=== PATIENT | female | born 1945 | race Caucasian/White ===

== ENCOUNTER 2017-04-13 12:53 | Day surgery (SDC) | payer OTHER ==
[~2017-04-13] VITALS: Ht 167.6 cm; Wt 66.2 kg
[2017-04-13 14:40] VITALS: Ht 167.6 cm; Wt 66.2 kg
[2017-04-13 14:58] VITALS: BP 116/78; PULSE 63; RESP 14
[2017-04-13] MEDS ORDERED: ASPI81TA3 PO (14:58)
[2017-04-13] MEDS ORDERED: HYDR25TA6 PO (14:58)
[2017-04-13] MEDS ORDERED: MTF1000T PO (14:58)
[2017-04-13] MEDS ORDERED: SIMV5TAB50 PO (14:58)
[2017-04-13] MEDS ORDERED: LOSA50TA6 PO (14:58)
[2017-04-13] MEDS ORDERED: PROPOFOL 40 ML ONE (15:31)
--- NOTE | 2017-04-13 15:33 | OPPN ---
Date/Time of Note Date/Time of Note DATE: 04/13/17 TIME: 15:29 Proc Note GI Procedure Date 04/13/17 Indication: screening/surveillance Pre-procedure Diagnosis CRC screening Unexplained diarrhea/constipation Post-procedure Diagnosis Impression: Normal colonic mucosa to cecum. Random biopsies obtained to rule out microscopic, lymphocytic or collagenous colitis. Normal terminal ileum. Random biopsies obtained Moderate-sized internal hemorrhoids Plan: Follow up as scheduled] High fiber diet Annual hemoccult stool testing [Review pathology] [Screening colonoscopy in 10 years] Procedure Performed: Colonoscopy (Plus biopsies. Ileoscopy plus biopsies) Surgeon BELGICA BARNES MD See signature line Tobacco Curer none Anesthesia Type: MAC Anesthesiologist: JOSE LOPEZ MD Tourniquet Time none EBL none Transfusion required none Biopsy 1: Terminal ileum Biopsy 2: Right colon Biopsy 3: Left colon Grafts/Implants none Tubes/Drains none Complication(s) none Disposition: home Procedure Description After informed consent, with the patient/relatives understanding the procedure, its indications and potential risks and complications, including but not limited to: Allergic reaction, bleeding, perforation, infection, and after all pertinent questions were answered to the patient's satisfaction, the patient/ relatives signed the witnessed informed consent. Following this, premedication was administered slowly IV push under careful cardiovascular and respiratory monitoring with pulse OX[employer], automatic blood pressure, and quality assurance monitor final. Once the sedative effect was achieved, the patient was placed in the left lateral decubitus position, digital rectal examination was performed. The colonoscope was then introduced and advanced under visual control throughout all segments of the colon including: []the rectum, sigmoid, descending colon, splenic flexure, transverse colon, hepatic flexure, ascending colon and finally reaching the cecum which was clearly identified by transillumination, finger indentation and the ileocecal valve. Careful examination of the mucosa of the lower gastrointestinal tract both on insertion as well as withdrawal of the instrument disclosed the following findings: PREPARATION QUALITY: [Adequate], RECTAL EXAM: The anorectal area was visualized examined and digital rectal examination performed with the following findings: No evidence of perirectal disease, no masses. COLONIC MUCOSA: The mucosa of all segments of the colon and distal terminal ileum was carefully examined and showed the following findings: the examined mucosa appears within normal limits. There is no evidence of inflammatory changes, diverticular formation, polyps or other neoplasms, vascular malformation, or any other abnormality. Moderate-sized internal hemorrhoids The instrument was then withdrawn, the patient tolerated the procedure well and was transferred out of the Endoscopy Suite awake and in good condition to continue recovery under observation. Copies To: CC: BELGICA BARNES MD, MORDO MD Apr 13, 2017 15:33
[2017-04-13 16:01] VITALS: BP 114/51; RESP 14
== END 2017-04-13 16:20 | disposition home or self-care (01) ==
LOC: GIL 12:53
PROVIDERS: ATTEND Internal Medicine Gastroenterology
DX: Z12.11 Encounter for screening for malignant neoplasm of colon (principal); K64.8 Other hemorrhoids; E11.9 Type 2 diabetes mellitus without complications; I10 Essential (primary) hypertension; E78.00 Pure hypercholesterolemia, unspecified
CPT/HCPCS: 45378; 82962; 88305; Z7610